=== PATIENT | male | born 1935 | race Caucasian/White ===

== ENCOUNTER 2016-12-14 15:17 | Inpatient (IN) | payer OTHER ==
[~2016-12-14] VITALS: Ht 185.4 cm; Wt 95.3 kg
--- NOTE | ~2016-12-14 | EKG ---
[address] [place] [address] ELECTROCARDIOGRAM REPORT Name: PRATEEK MILLER Room #: 445-P ADM IN M.R.#: [id number] Admission: 12/15/16 Attend Phys: Carito Foley Discharge: Date of : 35 Report #: [id number] THIS REPORT FOR: //name// [facility] ED Test Date: 2016-12-14 Test Time: 15:46:05 Pat Name: PRATEEK MILLER Department: Room: [facility] Gender: M Mixing Place Supervisor: Gris LACY : 1935 Requested By: Kj Phillips Order Number: [id number] MD: Jose Luis Do Measurements Intervals [place] Rate: 79 P: 262 NE: 132 QRS: -58 QRSD: 121 T: 56 QT: 404 QTc: 464 Interpretive Statements Ectopic atrial rhythm Left bundle branch block Baseline wander in lead(s) V1,V2 Compared to ECG 03/09/1991 07:01:00 Ectopic atrial rhythm now present Left bundle-branch block now present Sinus bradycardia no longer present Myocardial infarct finding no longer present Electronically Signed On 12-17-2016 10:55:09 CDT by Jose Luis Do [email or web address] <ELECTRONICALLY SIGNED> By: Jose Luis Do MD 12/17/16 1055 1546 1546 Jose Luis Do MD /EPI
--- NOTE | ~2016-12-14 | HC ---
[facility] [place] [address] CONSULTATION Name: PRATEEK MILLER Room #: 445-P [facility] M.R.#: [id number] Admission: 12/14/16 Attend Phys: Carito Foley Discharge: Date of : 35 Report #: [id number] THIS REPORT FOR: //name// CC: Carito Camarena [place] DATE OF SERVICE: 12/14/2016 HISTORY OF PRESENT ILLNESS: The patient is an 81-year-old male who had an exploratory cath at approximately 8:00 a.m. The patient was discharged at approximately 10:00 a.m., but was confused. He kept asking his "why am I here." He also complained of his vision. When his took him home, he continued with these problems and when he did not improve she brought him back to the hospital via EMS. An initial CT scan of the head was unremarkable. While I was contacted by the Emergency Room physician, I asked that an MRI head be done and this demonstrated among other abnormalities in the posterior circulation, bilateral occipital lobe infarcts, largest in the left occipital lobe. The patient is now watching television with his and other family members. PAST MEDICAL HISTORY: Peripheral vascular disease, hyperlipidemia, gastroesophageal reflux, hypertension. PAST SURGICAL HISTORY: Vascular stents. MEDICATIONS: Aspirin 325 mg daily, Welchol b.i.d., Zetia 10 mg daily, Cozaar 100 mg b.i.d., metoprolol 12.5 mg daily, Norvasc 5 mg daily. ALLERGIES: None. PHYSICAL EXAMINATION: VITAL SIGNS: Temperature 36.4, pulse 77, respirations 20, blood pressure 170/94, bedside pulse oximetry 94% on room air. NEUROLOGIC: Cranial nerves 2-12 are grossly intact with the exception of gross confrontational mcintosh. The patient was unable to see me. When I asked him to look at me he kept looking over my head and when I tried to tilt his head to look at me he still could not see me even though I was standing in front of him. Motor exam demonstrates symmetrical strength in all 4 extremities with tone and bulk normal. Reflexes are trace throughout. Plantar responses are flexor. Coordination demonstrates no evidence of dysmetria. Gait was not tested. LABORATORY DATA: White blood cell count 9.1, hemoglobin 16.2, hematocrit 48.5, MCV 92.9, platelet count 254,000. INR 1.1. Urinalysis negative. Chemistry 135, potassium 3.9, chloride 101, carbon dioxide 27, BUN 15, creatinine 1, [place] [address] CONSULTATION Name: PRATEEK MILLER Room #: 445-P [facility] M.R.#: [id number] Admission: 12/14/16 Attend Phys: Carito Foley Discharge: Date of : 35 Report #: [id number] glucose 124, calcium 8.8. B12 772. IMPRESSION AND PLAN: I am concerned that although the patient states he can see colors, he has very little vision. He has bilateral occipital lobe infarcts. MR angiography of the head and neck is unremarkable. The patient has a lipid profile ordered for tomorrow morning. He is now on aspirin 325 mg daily. This patient will require extensive physical therapy and will eventually need to be seen by either a neuroophthalmologist or an tractor mechanic as an outpatient for visual field testing. I thank you for your kind referral of the patient and I will continue to follow him with you. <ELECTRONICALLY SIGNED> By: Cuca Concepcion DO 12/15/16 1024 [id number] 0356 Cuca Concepcion DO /nt
--- NOTE | ~2016-12-14 | HC ---
[facility] [place] [address] CONSULTATION Name: PRATEEK MILLER Room #: 445-P [facility] IN M.R.#: [id number] Admission: 12/15/16 Attend Phys: Carito Foley Discharge: 12/17/16 Date of : 35 Report #: [id number] THIS REPORT FOR: //name// CC: Carito Camarena Tok HISTORY OF PRESENT ILLNESS: The patient is an 81-year-old white male who was admitted with acute mental status changes. The patient had had a renal artery stent with exploratory cath performed at [facility]. He underwent the anesthesia, and upon arousing, was noted to have problems with confusion that did not clear. He was admitted to [facility] with acute mental status changes. He was noted to have right-sided visual field neglect. CT of the head was negative, but MRI confirmed bilateral occipital lobe infarcts, left greater than right, along with left temporal lobe infarct and right cerebellar infarcts. Neurology is involved. He does have right visual field defect with right homonymous hemianopsia. They indicated he will need rehabilitation, and then neuro-ophthalmology as an outpatient. He will need for normal visual field testing at that time. We are seeing him in rehabilitation medicine consultation. PAST MEDICAL HISTORY: Includes peripheral vascular disease, elevated lipids, GERD, hypertension. MEDICATIONS: Please see the full medication listing. ALLERGIES: No known drug allergies. HABITS: No history of tobacco or alcohol abuse. SOCIAL HISTORY: House with spouse, 5 steps in, split level, was premorbidly independent, ambulatory without gait aids. does not work outside the home. There are a couple of sons here that are supportive. REVIEW OF SYSTEMS: He did not offer any current complaints of chest pain, shortness of breath or abdominal discomfort. He does have the visual field deficits as noted. No complaints of headache. No bowel or bladder changes. PHYSICAL EXAMINATION: GENERAL: An 81-year-old pleasant white male in no obvious distress. He is alert, pleasant. VITAL SIGNS: Last recorded temperature is 37.2, pulse 71, respirations 18, blood pressure 143/70. HEENT: Appeared to be benign. NEUROLOGIC: Facies were symmetric. EOMs appeared to be some disconjugate gaze upon right gaze. He has definite right dense homonymous hemianopsia. He has functional range of motion of both upper and lower extremities with strength at grade 4/5. DTRs are trace to 1. He was contact guard for sit to stand. Gait [facility] [address] [place] [address] CONSULTATION Name: PRATEEK MILLER Room #: 445-P [facility] IN M.R.#: [id number] Admission: 12/15/16 Attend Phys: Carito Foley Discharge: 12/17/16 Date of : 35 Report #: [id number] was 150 feet mod assist without a device. He needs max cues for ADLs with his visual deficits. IMPRESSION: An 81-year-old white male with the following problem list: 1. Bilateral occipital lobe infarcts, left greater than right with left temporal and right cerebellar infarcts. 2. Clinical evidence of right homonymous hemianopsia with definite right visual field deficit. 3. Right-sided neglect. 4. Functional mobility and activities of daily living as well as cognitive deficits. 5. Recent renal artery stenting with exploratory catheterization. 6. Peripheral vascular disease. 7. Elevated lipids. 8. Hypertension. 9. Gastroesophageal reflux disease. PLAN: Would agree that the patient warrants an acute in-hospital inpatient rehabilitation stay. Family is looking at the [facility] as it is closer for the to drive. The patient will need outpatient neuro-ophthalmology evaluation perform a visual field testing once he completes his acute rehabilitation. Case management will assist regarding appropriate arrangements. Discussion with the patient's son. Thank you for asking us to assist in this patient's care. <ELECTRONICALLY SIGNED> By: Isaias Bansal MD 12/19/16 1518 1356 0348 Isaias Bansal MD /nt
[~2016-12-14 15:17] MED LIST: ALEVE220 M1 PO; AMLODIPINE BESYL5 MG PO; ASPIRIN EC325 M1 PO; DIOVAN HCT 3201 EAC1 PO; HYDROCODONE-AP1 EAC6 PO; LOPRESSOR 12.12.5 MG PO; OMEPRAZOLE40 MG PO; WELCHOL 625 MG625 MG PO; ZETIA10 MG PO
[2016-12-14 15:33] VITALS: BP 179/106
[2016-12-14 15:37] LABS: HEMATOCRIT 48.5 % (42.0-52.0); HEMOGLOBIN 16.2 gm/dL (14.0-18.0); MCH 31.1 pg (26.0-34.0); MCHC 33.5 g/dL (28.0-37.0); MCV 92.9 fL (80.0-100.0); RBC 5.22 mil/uL (4.50-6.00); WBC 9.1 thou/uL (4.0-11.0)
[2016-12-14 15:48] LABS: ANION GAP 7 mmol/L (7-16); BUN 15 mg/dL (7-18); CALCIUM 8.8 mg/dL (8.5-10.1); CHLORIDE 101 mmol/L (98-107); CO2 27 mmol/L (21-32); GLUCOSE 124 mg/dL (74-106); POTASSIUM 3.9 mmol/L (3.5-5.1); SODIUM 135 mmol/L (136-145)
[2016-12-14 15:53] LABS: APTT 25.9 Seconds (24.5-32.8); INR 1.1; PROTIME 11.1 Seconds (9.3-11.4)
[2016-12-14 15:57] LABS: TROPONIN-I < 0.04 ng/mL (<0.04-0.07)
[2016-12-14 18:18] LABS: URINE BILIRUBIN NEGATIVE (Negative); URINE BLOOD NEGATIVE (Negative); URINE COLOR YELLOW; URINE GLUCOSE-RANDOM* NEGATIVE (Negative); URINE KETONES NEGATIVE (Negative); URINE LEUKOCYTES-REFLEX NEGATIVE (Negative); URINE PROTEIN (DIPSTICK) NEGATIVE (Negative); URINE UROBILINOGEN 0.2 E.U./dl (0.2-1.0)
[2016-12-14 18:37] VITALS: BP 168/79
[2016-12-14 19:19] LABS: SMEAR FOR EOSINOPHILS No Eosinophils Seen
[2016-12-14 20:59] VITALS: BP 170/94
[2016-12-15 04:39] VITALS: BP 170/73
[2016-12-15 06:14] LABS: CHOLESTEROL 158 mg/dL (<200); HDL CHOLESTEROL 39 mg/dL (>40); LDL CHOLESTEROL 92 mg/dL (<100); TC:HDL 4.1 Ratio (Not establshd); TRIGLYCERIDE 136 mg/dL (<150); VLDL 27 mg/dL (<40)
[2016-12-15 06:15] LABS: SERUM ASSESSMENT Clear
[2016-12-15 08:00] VITALS: BP 171/67
[2016-12-15 13:45] VITALS: BP 143/70
[2016-12-15 16:00] VITALS: BP 148/72
[2016-12-15 20:25] VITALS: BP 150/87
[2016-12-16 04:50] VITALS: BP 153/85
[2016-12-16 08:00] VITALS: BP 132/66
[2016-12-16 16:00] VITALS: BP 138/59
[2016-12-16 20:00] VITALS: BP 145/74
[2016-12-17 06:30] VITALS: BP 143/78
[2016-12-17] MEDS ORDERED: LOPRESSOR25 PO (10:47)
[2016-12-17] MEDS ORDERED: MIRALAX17 GM PO (10:48)
[2016-12-17] MEDS ORDERED: COZAAR100 MG PO (10:48)
[2016-12-17] MEDS ORDERED: PAIN & FEVER325 MG PO (10:48)
== END 2016-12-17 13:58 | DRG 64 ==
LOC: ER 15:17 → EROBS 16:17 → 4S 18:30
PROVIDERS: Emergency Medicine; Hospitalist
DX: I63.432 Cerebral infarction due to embolism of left posterior cerebral artery (principal); G93.40 Encephalopathy, unspecified; I73.9 Peripheral vascular disease, unspecified; E78.5 Hyperlipidemia, unspecified; K21.9 Gastro-esophageal reflux disease without esophagitis; I10 Essential (primary) hypertension; H53.40 Unspecified visual field defects; H53.461 Homonymous bilateral field defects, right side; I25.10 Atherosclerotic heart disease of native coronary artery without angina pectoris; Z95.820 Peripheral vascular angioplasty status with implants and grafts

== ENCOUNTER → 2020-01-01 | Outpatient (CLI) | payer OTHER ==
[~2020-01-01] MED LIST changes: +COZAAR100 MG PO; +LOPRESSOR25 PO; +MIRALAX17 GM PO; +PAIN & FEVER325 MG PO
== END ==
LOC: SJCVC 13:53
PROVIDERS: ATTEND Internal Medicine
DX: I25.10 Atherosclerotic heart disease of native coronary artery without angina pectoris (principal); I10 Essential (primary) hypertension; E78.5 Hyperlipidemia, unspecified; I65.23 Occlusion and stenosis of bilateral carotid arteries; I71.4 Abdominal aortic aneurysm, without rupture; K21.9 Gastro-esophageal reflux disease without esophagitis; Z79.82 Long term (current) use of aspirin; Z79.899 Other long term (current) drug therapy; Z82.49 Family history of ischemic heart disease and other diseases of the circulatory system; Z87.891 Personal history of nicotine dependence

== ENCOUNTER 2020-05-22 21:51 | Inpatient (IN) | payer OTHER ==
[~2020-05-22] VITALS: Ht 182.9 cm; Wt 82.1 kg
[2020-05-22 21:58] VITALS: BP 118/73
[2020-05-22 22:45] LABS: ABSOLUTE NEUTROPHILS 11.7 thou/uL (1.4-8.2); BASOPHILS 0.5 % (0.0-2.0); EOSINOPHILS 0.1 % (0.0-3.0); HEMATOCRIT 45.5 % (42.0-52.0); HEMOGLOBIN 15.5 gm/dL (14.0-18.0); LYMPHOCYTES 9.4 % (24.0-44.0); MCH 32.8 pg (26.0-34.0); MCHC 34.1 g/dL (28.0-37.0); MCV 96.1 fL (80.0-100.0); MONOCYTES 8.5 % (1.0-8.0); PLATELET COUNT 266 thou/uL (150-400); POLYS 81.5 % (36.0-66.0); RBC 4.74 mil/uL (4.50-6.00); RDW 13.8 % (10.5-14.5); WBC 14.3 thou/uL (4.0-11.0)
[2020-05-22 22:53] LABS: CALCIUM 8.9 mg/dL (8.5-10.1); CREATININE 1.7 mg/dL (0.7-1.3); POTASSIUM 4.6 mmol/L (3.5-5.1)
[2020-05-22 23:04] LABS: ALBUMIN 3.5 g/dL (3.4-5.0); TOTAL BILIRUBIN 1.4 mg/dL (0.2-1.0); TOTAL PROTEIN 7.4 g/dL (6.4-8.2)
[2020-05-22 23:07] LABS: TROPONIN-I 20.95 ng/mL (<0.06)
[2020-05-22] MEDS ORDERED: CLOPIDOGREL75 MG PO (23:34)
[2020-05-22] MEDS ORDERED: AMLODIPINE BESY10 MG PO (23:34)
[2020-05-22] MEDS ORDERED: PROTONIX40 M2 PO (23:35)
[2020-05-22] MEDS ORDERED: VALSARTAN-HCTZ1 EAC3 PO (23:35)
[2020-05-22 23:39] LABS: INR 1.1
[2020-05-22] MEDS ORDERED: ASA81BEC PO (23:40)
[2020-05-22] MEDS ORDERED: WELCHOL 625 MG625 MG PO (23:41)
[2020-05-22] MEDS ORDERED: TOPROL XL25 MG PO (23:43)
[2020-05-23] VITALS (12 sets, daily range): BP systolic 94–133; BP diastolic 61–92
--- NOTE | 2020-05-23 02:22 | NUR ---
ADMITTED FROM ED. PT PRESENTED FROM HOME SOA CHEST PAIN. PT ON 5L NC, 90 TO 93% O2 SAT. LUNGS WITH WHEEZES. SOA WITH EXERTION. FORGETFUL REGARDING HISTORY AND ASKED FOR PROVIDER AND NURSE TO ASK HIS FOR ANSWERS REGARDING MEDICAL HISTORY. MED HX TX, CVA, CHF, PROSTATE CANCER. PT DENIES PAIN. PT HAS DRY COUGH. PT EDUCATED RE NEED TO CALL FOR ASSISTANCE WITH TRANSFERS, NPO STATUS. SCDS INTACT. HEPARIN DRIP. BED ALARM ON. PROVIDED PRIVACY CODE.
[2020-05-23 06:09] LABS: HEMATOCRIT 45.6 % (42.0-52.0); HEMOGLOBIN 15.1 gm/dL (14.0-18.0); MCH 31.8 pg (26.0-34.0); MCHC 33.2 g/dL (28.0-37.0); RBC 4.75 mil/uL (4.50-6.00); RDW 13.9 % (10.5-14.5); WBC 14.2 thou/uL (4.0-11.0)
[2020-05-23 06:16] LABS: URINE BILIRUBIN NEGATIVE (Negative); URINE BLOOD NEGATIVE (Negative); URINE CLARITY CLEAR; URINE COLOR YELLOW; URINE GLUCOSE-RANDOM* NEGATIVE (Negative); URINE KETONES NEGATIVE (Negative); URINE LEUKOCYTES NEGATIVE (Negative); URINE NITRITE NEGATIVE (Negative); URINE PROTEIN (DIPSTICK) NEGATIVE (Negative); URINE SPECIFIC GRAVITY 1.025 (1.005-1.035); URINE UROBILINOGEN 0.2 E.U./dl (0.2-1.0)
[2020-05-23 06:22] LABS: CHOLESTEROL 186 mg/dL (<200); HDL CHOLESTEROL 49 mg/dL (>40); LDL CHOLESTEROL 117 mg/dL (<100); TC:HDL 3.8 Ratio (Not establshd); TRIGLYCERIDE 102 mg/dL (<150); VLDL 20 mg/dL (<40)
--- NOTE | 2020-05-23 07:17 | NUR ---
SUPRVISOR NOTIFIED COVID TEST NEG. PTS ALSO NOTIFIED. DAY SHIFT WILL NOTIFY
--- NOTE | 2020-05-23 07:57 | EKG ---
[facility] [place] [address] ELECTROCARDIOGRAM REPORT Name: PRATEEK MILLER Room #: 360-P ADM IN M.R.#: [id number] Admission: 05/23/20 Attend Phys: Yamil Pérez MD Discharge: Date of : 35 Report #: [id number] THIS REPORT FOR: cc: Migue Adhikari II, MD, II,Migue Mcgrath,Reji FERNANDEZ [facility] ~ THIS REPORT FOR: //name// [facility] ED Test Date: 2020-05-22 Test Time: 22:28:33 Pat Name: PRATEEK MILLER Department: Room: [facility] Gender: M Conference Producer: : 1935 Requested By: Janet Holley Order Number: [id number] MD: Reji Mcgrath Measurements Intervals [place] Rate: 100 P: 18 PA: 115 QRS: -19 QRSD: 154 T: 185 QT: 404 QTc: 522 Interpretive Statements Sinus tachycardia Left bundle branch block Compared to ECG 12/14/2016 15:46:05 Ectopic atrial rhythm no longer present Electronically Signed On 05-23-2020 7:57:26 TURRET PUNCH OPERATOR by Reji Mcgrath [email or web address] <ELECTRONICALLY SIGNED> By: Reji Mcgrath MD, FACC 05/23/20 0757 Reji Mcgrath MD, FAC /EPI
--- NOTE | 2020-05-23 19:31 | NUR ---
PATIENT DOES NOT FOLLOW DIRECTIONS. HE WAS NOTED TWICE GETTING UP FROM BED TO THE BATHROOM DESPITE BEING EDUCATED THAT HE HAS TO MINIMIZE HIS MOVEMENT DUE TO HIM BEING ON HEPARIN DRIP. IVS REPLACED TWICE. HE CONT TO NEED MORE OXYGEN AND NOW ON A NON REBREATHER. WILL CONT WITN PLAN OF CARE.
[2020-05-23 20:53] LABS: BE(vivo) -1.8 mmol/L (-2 to +3); HCO3 21.1 mmol/L (22.0-26.0); PCO2 31.3 mmHg (35.0-45.0); PO2 181.2 mmHg (80.0-100.0); pH 7.447 (7.360-7.450); sO2 99.3 % (92.0-98.0)
--- NOTE | 2020-05-24 00:46 | NUR ---
AT BEGINNING OF SHIFT PT ON 10L NC SATS 88%. PT CONFUSED IMPULSIVE TAKING OFF NC. O2 NC INCREASED TO 12L SAT 92%. RESPIRATORY CALLED. MCAT INSTRUCTOR AND CHARGE NURSE UPDATED. RESPIRATORY CAME TO ROOM PLACED PT ON NRB MASK. 15L. PROVIDER METER SUPERVISOR CONTACTED RE BEHAVIOR AND NEED FOR INCREASE IN O2, LUNGS COARSE AND WET. ORDERS FOR ABG, BIPAP,SOLUMEDROL, ATIVAN,PHILIP CATHETER. ABG DONE ON BIPAP, RESULTS CALLED TO PROVIDER, SHE WAS ALSO UPDATED RE PT NOT BEING ABLE TO FOLLOW REDIRECTION AND NON COMPLIANCE WITH BIPAP. PT WAS PLACED BACK ON NRB 15L. RESPIRATORY NOTIFIED. PTS RHYTHM CHANGED TO AFIB RVR. RAPID RESPONSE CALLED. RESPIRATORY PLACED BIPAP BACK ON. CARDIZEM BOLUS AND DRIP INITIATED. FS 181 DURING RAPID RESPONSE. ADDITIONAL ATIVAN PRN ORDERED, PT PULLLING ON IV, TAKING OFF BIPAP, SITTING UP IN BED AND TRYING TO STAND. PT PROVIDED 1:1 SITTER. PT CONTINUED WITH CONFUSION, RESTLESS, IMPULSIVE TRYING TO GET OUT OF BED TAKE OFF BIPAP, GETTING OUT OF BED. PROVIDER CONTACTED AND HALDOL X1 ORDERED AND SOFT WRIST RESTRAINTS. LACTIC ACID WENT FROM 4.3 TO 6.2, PROVIDER NOTIFIED 500ML NS ORDERED. PULMONARY DR CALLED AND UPDATED REGARDING THE ABOVE INFORMATION. PROVIDER METER SUPERVISOR CALLED WITH THAT PTS SKIN CLAMMY REMAINING RESTLESS FSBS 149. CHARGE NURSE AND MCAT INSTRUCTOR UPDATED RE PATIENTS CONDITION CHANGES PRESENTED. PTS HAS BEEN CALLED THREE TIMES TO KEEP HER UPDATED REGARDING PTS CHANGE IN CONDITION, BIPAP, COVID NEG, CARDIZEM DRIP AND SOFT WRIST RESTRAINTS.
--- NOTE | 2020-05-24 01:18 | NUR ---
MANAGER INTENSIVE CARE UNIT AND CHARGE NOTIFIED PTS SECOND COVID PCR NEGATIVE AT 2055.
[2020-05-24 01:21] VITALS: BP 124/76
[2020-05-24 02:35] VITALS: BP 124/78
--- NOTE | 2020-05-24 02:38 | NUR ---
PT NO LONGER CLAMMY, PT REMAINS RESTLESS AND CONFUSED NOT FOLLOWING REDIRECTION BUT ENGAGING IN CONSTANT CONVERSATION.
[2020-05-24 04:54] LABS: HEMATOCRIT 47.4 % (42.0-52.0); HEMOGLOBIN 15.3 gm/dL (14.0-18.0); MCH 31.6 pg (26.0-34.0); MCHC 32.3 g/dL (28.0-37.0); MCV 97.9 fL (80.0-100.0); RBC 4.84 mil/uL (4.50-6.00); RDW 14.1 % (10.5-14.5); WBC 17.5 thou/uL (4.0-11.0)
--- NOTE | 2020-05-24 04:56 | NUR ---
PTS WANTS PT TRANSFERRED TO A NON COVID FLOOR SO THAT SHE CAN COME IN AND SIT WITH PT, HOPING HE WILL BE LESS CONFUSED RESTLESS AND MAINTAIN COMPLIANCE WITH BIPAP.
[2020-05-24 05:31] VITALS: BP 129/65
--- NOTE | 2020-05-24 05:35 | NUR ---
AROUND 0300 PT REMAINED RESTLESS AGITATED PROVIDER CALLED AND PRN HALDOL ORDER PROVIDED.
[2020-05-24 05:42] LABS: MAGNESIUM 2.6 mg/dL (1.8-2.4); POTASSIUM 4.3 mmol/L (3.5-5.1)
[2020-05-24 05:47] LABS: CREATININE 2.7 mg/dL (0.7-1.3)
--- NOTE | 2020-05-24 05:50 | NUR ---
PTS PHILIP OUTPUT 300 ORANGE TEA COLOR, PROVIDER NOTIFIED ALONG WITH CREATNINE 2.7.
--- NOTE | 2020-05-24 08:28 | EKG ---
[facility] [place] [address] ELECTROCARDIOGRAM REPORT Name: PRATEEK MILLER Room #: 360-P ADM IN M.R.#: [id number] Admission: 05/23/20 Attend Phys: Yamil Pérez MD Discharge: Date of : 35 Report #: [id number] THIS REPORT FOR: cc: Onofre POSADA,Migue Adhikari II,Migue Campos,Gregory Sanchez MD [facility] THIS REPORT FOR: //name// [facility] Test Date: 2020-05-23 Test Time: 22:15:34 Pat Name: PRATEEK MILLER Department: Room: 360 P Gender: M Mechanical Service Specialist: : 1935 Requested By: Felicity Beverly Order Number: [id number] MD: Gregory Campos Measurements Intervals [place] Rate: 113 P: WI: QRS: 15 QRSD: 197 T: 139 QT: 406 QTc: 557 Interpretive Statements Atrial fibrillation Left bundle branch block Baseline wander in lead(s) II,III,aVR,aVL,aVF Compared to ECG 05/22/2020 22:28:33 Sinus tachycardia no longer present Electronically Signed On 05-24-2020 8:28:05 SPACE OFFICER by Gregory Campos [email or web address] <ELECTRONICALLY SIGNED> By: Gregory Campos MD, [facility] 05/24/20 0828 14 14 Gregory Campos MD, FAC /EPI
[2020-05-24 08:40] VITALS: BP 127/66
--- NOTE | 2020-05-24 12:07 | 2DMMODE ---
[facility] [place] [address] 2 D/M-MODE ECHOCARDIOGRAM Name: PRATEEK MILLER Room #: 360-P ADM IN M.R.#: [id number] Admission: 05/23/20 Attend Phys: Yamil Pérez MD Discharge: Date of : 35 Report #: [id number] THIS REPORT FOR: cc: Onofre POSADA,Migue Adhikari II,Migue Campos,Gregory Sanchez MD [facility] ~ APPROVED REPORT Study performed: 05/24/2020 11:04:09 EXAM: Comprehensive 2D, Doppler, and color-flow Echocardiogram Patient Location: Bedside Room #: 360 Status: routine BSA: 2.04 HR: 90 bpm BP: 126/66 mmHg Rhythm: LBBB Other Information Study Quality: Adequate/Patient sitting up on BiPAP Technically limited study due to no pt cooperation, lots of moving heavy breathin.. Indications Recent TN/Chest pain, CHF, SOB. Hx: CAD, stents, LBBB, PVD, PAF, HTN. 2D Dimensions RVDd: 42.73 mm IVSd: 12.00 (7-11mm) LVOT Diam: 21.00 (18-24mm) LVDd: 59.00 mm PWd: 11.00 (7-11mm) LVDs: 47.00 (25-40mm) Aortic Root: 36.00 mm Volumes Left Atrial Volume (Systole) Single Plane 4CH: 88.27 mL Single Plane 2CH: 100.89 mL LA ESV Index: 50.00 mL/m2 Aortic Valve AoV Peak Ayad.: 1.53 m/s AO Peak Gr.: 9.31 mmHg LVOT Max P.32 mmHg [facility] [address] [place] [address] 2 D/M-MODE ECHOCARDIOGRAM Name: PRATEEK MILLER Room #: 360-P [facility] IN ..#: [id number] Admission: 05/23/20 Attend Phys: Yamil Pérez, Discharge: Date of : 35 Report #: [id number] LVOT Max V: 0.91 m/s JORGE Vmax: 2.04 cm2 Mitral Valve E/A Ratio: 1.4 MV Decel. Time: 95.68 ms MV E Max Ayad.: 0.80 m/s MV A Ayad.: 0.57 m/s MV PHT: 27.75 ms IVRT: 86.51 ms Pulmonary Valve PV Peak Ayad.: 0.96 m/s PV Peak Gr.: 3.66 mmHg Tricuspid Valve TR Peak Ayad.: 3.52 m/s RAP Estimate: 15.00 mmHg TR Peak Gr.: 49.49 mmHg PA Pressure: 64.00 mmHg Left Ventricle Left ventricle is mildly dilated. There is global hypokinesis of the left ventricle. Mild basal septal hypertrophy is present. Left ventricular systolic function is severely decreased. LVEF is 25%. Moderate diastolic dysfunction is present. Right Ventricle Right ventricle is at the upper limits of normal. The right ventricular systolic function is normal. Atria Left atrium is moderately dilated. Right atrium is mildly dilated. Aortic Valve Aortic valve is moderately calcified. No aortic regurgitation is present. There is no aortic valvular stenosis. Mitral Valve Mild mitral annular calcification. Moderate mitral regurgitation. No evidence of mitral valve stenosis. Tricuspid Valve The tricuspid valve is normal in structure. Moderate tricuspid regurgitation. Estimated PAP is 60-65mmHg. Pulmonic Valve [facility] [address] [place] [address] 2 D/M-MODE ECHOCARDIOGRAM Name: PRATEEK MILLER Room #: 360-P [facility] IN M.R.#: [id number] Admission: 05/23/20 Attend Phys: Yamil Pérez, Discharge: Date of : 35 Report #: [id number] The pulmonary valve is normal in structure. Trace pulmonic regurgitation. Great Vessels The aortic root is normal in size. Ascending aorta is not well visualized. IVC is dilated and collapses <50% with inspiration. Pericardium There is no pericardial effusion. <Conclusion> Left ventricular systolic function is severely decreased. There is global hypokinesis of the left ventricle. LVEF is 25%. Moderate diastolic dysfunction Left atrium is moderately dilated. Aortic valve is moderately calcified. No aortic stenosis or insufficiency. Mild mitral annular calcification. Moderate mitral regurgitation. Moderate tricuspid regurgitation. Estimated pulmonary artery pressure of 60-65mmHg. There is no pericardial effusion. <ELECTRONICALLY SIGNED> By: Gregory Campos MD, FACC 05/24/201206 06 06 Gregory Campos MD, FACC /INF
[2020-05-24 14:11] LABS: HEMATOCRIT 47.1 % (42.0-52.0); HEMOGLOBIN 15.1 gm/dL (14.0-18.0); MCH 32.5 pg (26.0-34.0); MCHC 32.1 g/dL (28.0-37.0); MCV 101.2 fL (80.0-100.0); RBC 4.66 mil/uL (4.50-6.00); RDW 14.6 % (10.5-14.5); WBC 25.2 thou/uL (4.0-11.0)
[2020-05-24 14:19] LABS: CALCIUM 9.9 mg/dL (8.5-10.1); CREATININE 3.6 mg/dL (0.7-1.3)
[2020-05-24 14:20] LABS: POTASSIUM 4.4 mmol/L (3.5-5.1)
[2020-05-24 14:30] LABS: ALBUMIN 2.3 g/dL (3.4-5.0); TOTAL BILIRUBIN 1.6 mg/dL (0.2-1.0); TOTAL PROTEIN 5.7 g/dL (6.4-8.2)
--- NOTE | 2020-05-24 14:39 | NUR ---
pt drowsy and confused, reaching for bipap mask, soft limb restraints still on, spoke softly and sang to pt reminding him to try to relax. gave iv lasix but little output, dr Pérez aware. 1132 pt had cardiac pause, logging equipment mechanic called as pulse spontaneous returned, cardizem stopped, Dr Pérez called and spoke with , she wants to keep him full code. pt coded later, 3 codes run on pt while waiting and transferring to ICU bed.
--- NOTE | 2020-05-24 14:42 | EKG ---
[facility] [address] ELECTROCARDIOGRAM REPORT Name: PRATEEK MILLER Room #: 243-P ADM IN M.R.#: [id number] Admission: 05/23/20 Attend Phys: Yamil Pérez MD Discharge: Date of : 35 Report #: [id number] THIS REPORT FOR: cc: Onofre POSADA,Migue Adhikari II,Migue Mcgrath,Reji FERNANDEZ [facility] ~ THIS REPORT FOR: //name// [facility] Test Date: 2020-05-24 Test Time: 11:44:10 Pat Name: PRATEEK MILLER Department: Room: Replaced by [facility] Gender: M Show Card Letterer: SBVERÓNICA : 1935 Requested By: Yamil Pérez Order Number: [id number] MD: Reji Mcgrath Measurements Intervals [place] Rate: 81 P: -44 IL: 220 QRS: -19 QRSD: 170 T: 135 QT: 441 QTc: 512 Interpretive Statements AFIB Prolonged QT interval LBBB Atrial premature complex(es) now present Early repolarization now present Prolonged QT interval now present Prolonged QT interval now present Compared to ECG 05/23/2020 22:15:34 Atrial premature complex(es) now present Prolonged QT interval now present Early repolarization now present Electronically Signed On 05-24-2020 14:41:58 PEST CONTROL SUPERVISOR by Reji Mcgrath [email or web address] <ELECTRONICALLY SIGNED> By: Reji Mcgrath MD, [facility] 05/24/20 1441 1144 1144 Reji Mcgrath MD, [facility] /EPI
--- NOTE | 2020-05-24 14:54 | NUR ---
THIS GLUER AND SLICER HAND ASSISTED THE FAMILY UPON THEIR ARRIVAL AT THE HOSPITAL. PRAYERS WERE OFFERED AND ASSITED IN GETTING THEM TO ICU 243. THE PATIENT ENVENTALLY IN ICU. GLUER AND SLICER HAND ASSISTED WITH END OF LIFE MATTERS AND WALKED THEM OUT TO THE FRONT DOOR. THIS GLUER AND SLICER HAND WENT BACK TO ORIGINAL ROOM AND FOUND PATIENT'S CANE, TOOK IT TO SECURITY AND NOTIFIED FAMILY. THE SON NGUYEN AVILES) IS TO COME AND PICK IT UP. SECURITY NOTIFIED.
[2020-05-24 15:04] LABS: ABSOLUTE NEUTROPHILS 20.2 thou/uL (1.4-8.2); METAMYELOCYTES 1 %
[2020-05-24 15:14] LABS: PLATELET COUNT 186 thou/uL (150-400)
--- NOTE | 2020-05-24 15:24 | NUR ---
PT TRANSFERED TO ICU APPROXIMETELY AT 1330. BRIEF REPORT GIVIN AT BEDSIDE BY RN. PT WAS RECEIVING FULL ACLS PROTOCAL DURING TRANSFER. ACLS WAS CONTINUED WHILE IN ICU ROOM. ROSC WAS ACHIEVED MOMENTAIRLY, FAMILY WAS UPDATED AND EDUCATED. DECISION WAS MADE BY PHYSICIAN/FAMILY TO DISCONTINUE ACLS IF THE PT WERE TO LOSE PULSE AGAIN. PT WAS PRONOUNCED AT [address] RUIZ AND MYSELF. MTN WAS NOTIFIED REFERAL NUMBER IS [id number]. PT IS A CANIDATE FOR EYE/TISSUE DONATION. NORMAL SALINE DROPS WERE PLACED IN PT'S EYES DIRECTED BY MTN.
== END 2020-05-24 21:29 ==
LOC: ER 21:51 → 3W 05-23 00:10 → EROBS 05-23 00:10 → 3W 05-23 01:21 → ICU 05-24 13:41
PROVIDERS: Nurse Practitioner Family; Pediatrics; Student in an Organized Health Care Education/Training Program; ADMIT Internal Medicine; ATTEND Internal Medicine
DX: I21.4 Non-ST elevation (NSTEMI) myocardial infarction (principal); J96.01 Acute respiratory failure with hypoxia; I50.23 Acute on chronic systolic (congestive) heart failure; N17.9 Acute kidney failure, unspecified; D68.59 Other primary thrombophilia; I11.0 Hypertensive heart disease with heart failure; K21.9 Gastro-esophageal reflux disease without esophagitis; I25.10 Atherosclerotic heart disease of native coronary artery without angina pectoris; E78.5 Hyperlipidemia, unspecified; I71.4 Abdominal aortic aneurysm, without rupture; I44.7 Left bundle-branch block, unspecified; I73.9 Peripheral vascular disease, unspecified; E78.2 Mixed hyperlipidemia; I50.82 Biventricular heart failure; Z20.828 Contact with and (suspected) exposure to other viral communicable diseases; I48.0 Paroxysmal atrial fibrillation; R74.01 Elevation of levels of liver transaminase levels; R57.0 Cardiogenic shock; Z66 Do not resuscitate; Z85.46 Personal history of malignant neoplasm of prostate; Z79.899 Other long term (current) drug therapy; Z86.73 Personal history of transient ischemic attack (TIA), and cerebral infarction without residual deficits; Z95.5 Presence of coronary angioplasty implant and graft
CPT/HCPCS: 10879